=== PATIENT | male | born 2000 | race Caucasian/White ===

== ENCOUNTER 2024-01-11 17:17 | Emergency (ER) | payer BC, SELFPAY ==
[2024-01-11 17:38] VITALS: BP 115/74; PULSE 89; RESP 16; TEMP 37; O2SAT 99; BMI 23.7
--- NOTE | 2024-01-11 17:52 | XR_ITS ---
Patient: BALBINA ARDON Facility:?[facility] Patient ID:?[id number] Site Patient ID:?[id number] Site :?2002 Study:?XRay-Extremity Right KNEE-01/11/2024 6:13:34 PM Ordering Physician:?DR BURT Final Report: Indication: Fall, medial and posterior pain. Technique: Right knee 3 views. Comparison: None. Findings: Bones: Alignment is normal. No fractures or bone lesions. Joint spaces: Small knee joint effusion.. Soft tissues: Unremarkable. Impression: Small knee joint effusion. No acute bony abnormality. Dictated by Demetri Santoro MD @ 01/11/2024 6:18:12 PM Signed by:?Demetri Santoro MD @01/11/2024 6:18:12 PM (Electronic Signature)
--- NOTE | 2024-01-11 18:05 | ED.LOWEXIN ---
HPI - Extremity Injury (Lower) General Date Seen: 01/11/24 Chief Complaint: Extremity Pain/Injury, Lower Stated Complaint: Fell while climbing, R leg injury Time Seen by Provider: 01/11/24 17:46 Source: patient Mode of arrival: ambulatory Limitations: no limitations History of Present Illness HPI Narrative: Patient is a 23-year-old male presenting to emergency department for right lower extremity pain. He states he was at the [employer] when he attempted a job causing him to fall approximately 3 ft landing on his right foot. He thought like he heard a pop in his upper calf. States the pain has been gradually getting worse but has been able walk. Has no pain when putting pressure on the leg but does nose pain to his proximal calf with extension and will lateral right knee with flexion. Also states he is having some pain that just above his right ankle. No other injuries noted. Related Data Home Medications Medication Instructions Recorded Confirmed methylphenidate HCl 5 mg tablet 5 mg PO BID 01/11/24 01/11/24 Allergies Allergy/AdvReac Type Severity Reaction Status Date / Time No Known Drug Allergies Allergy Verified 01/11/24 17:37 Review of Systems Narrative: Pertinent systems reviewed and were negative unless stated HPI PFSH PFSH Social History Smoking Status: Never smoker Do you use any of these nicotine containing products: None How often do you have a drink containing alcohol: 2-3 times a week AUDIT-C Alcohol total score: 3 Non-prescribed substance use: denies use Exam Narrative: Exam Narrative: Const: Well-nourished, Well-developed, in mild distress Eyes: PERRL, no conjunctival injection, and symmetrical lids HENT: Atraumatic external nose and ears. Moist mucous membranes. Remove MSK:Extremities w/o deformity, mildly decreased passive range of motion to right knee secondary to pain. Some mild tenderness proximal calf and lateral knee joint line. No tenderness noted down by ankle. Mildly decreased passive range of motion secondary to pain. Skin: Warm, Dry. No rashes or lesions. Neuro: Normal Muscle tone, No focal neurological deficits. Psych: Awake, Alert, & Oriented x3. Appropriate mood and affect. Const: Vital Signs, click to edit/add: Vital Signs - 24 hr 01/11/24 17:38 Temperature 98.6 F Pulse Rate [Pulse Oximeter] 89 Respiratory Rate 16 Blood Pressure [Ri ght Upper Arm] 115/74 Pulse Oximetry 99 Oxygen Delivery Me thod Room Air Course Vital Signs Vital signs: Initial Vital Signs Temperature 98.6 F 01/11/24 17:38 Temperature Source Temporal Artery Scan 01/11/24 17:38 Pulse Rate 89 01/11/24 17:38 Respiratory Rate 16 01/11/24 17:38 Blood Pressure 115/74 01/11/24 17:38 Blood Pressure Mean 87 01/11/24 17:38 Blood Pressure Position Sitting 01/11/24 17:38 Pulse Oximetry 99 01/11/24 17:38 Oxygen Delivery Method Room Air 01/11/24 17:38 Vital Signs Temperature 98.6 F 01/11/24 17:38 Pulse Rate 89 01/11/24 17:38 Respiratory Rate 16 01/11/24 17:38 Blood Pressure 115/74 01/11/24 17:38 Pulse Oximetry 99 01/11/24 17:38 Oxygen Delivery Method Room Air 01/11/24 17:38 Temperature 98.6 F 01/11/24 17:38 Pulse Rate 89 01/11/24 17:38 Respiratory Rate 16 01/11/24 17:38 Blood Pressure 115/74 01/11/24 17:38 Pulse Oximetry 99 01/11/24 17:38 Oxygen Delivery Method Room Air 01/11/24 17:38 MDM - Extremity Injury (Lower) MDM Narrative Medical decision making narrative: Patient is a 23-year-old male presenting for right knee and calf pain. He is able to move his knee and ankle and I am not concerned about a tendon rupture right now. Will do an x-ray of the knee to better evaluate any potential bony abnormalities. Do not believe any images of the ankle or lower leg as he has no point tenderness. He is not want anything for pain at this time. X-ray reviewed by myself and the radiologist shows a small knee joint effusion but no other abnormalities. He is otherwise doing well will be discharge at this time. Imaging Data Right knee x-ray: Attestation: I have reviewed the pertinent imaging results. Radiologist's impression: Small knee joint effusion. No acute bony abnormality. Dictated by Demetri Santoro MD @ 01/11/2024 6:18:12 PM Discharge Plan Discharge Clinical Impression: Sprain of knee Qualifiers: Encounter type: initial encounter Involved ligament of knee: unspecified ligament Laterality: left Qualified Code(s): S83.92XA - Sprain of unspecified site of left knee, initial encounter Patient Disposition: Home, Self-Care Condition: Stable Instructions: Knee Sprain (DC) Additional Instructions: Take Tylenol and ibuprofen for pain. Keep leg elevated. Use ice for 20 minutes 3 times a day as needed for pain. Return for new or worsening symptoms. If you are having persistent knee issues follow-up in the [facility]. Prescriptions: No Action methylphenidate HCl 5 mg tablet 5 mg PO BID Follow Up/Referrals: Provider,Not a Local [Primary Care Provider] - Stand Alone Forms: [employer] Info Instructions
--- OUTSIDE RECORDS SUMMARY | 2024-01-11 18:28 | XMS_ITS | Clinical Summary ---
Author Name Unknown Organization [facility] Address [place], [place] [address] Care Team Providers Care Diver Tender Name Role Phone Pcp, No Primary Care Provider Unavailabl e Allergies No known active allergies Medications Medication Sig Dispensed Refills Start Date End Date Status methylphenidate HCl (Ritalin) 5 mg tablet Take 1 Tablet (5 mg) by mouth 2 times daily. 60 Tablet 01/14/2022 Active melatonin 5 mg capsule Take 1 Capsule (5 mg) by mouth. 0 01/14/2022 Active albuterol HFA (PRO-AIR; VENTOLIN; PROVENTIL) 90 mcg/actuation inhaler Inhale 2 Puffs by mouth. 01/25/2021 Active fluticasone propionate (Flovent HFA) 110 mcg/Actuation inhaler Indications: needed seasonally 01/26/2021 Active Encounters Date Type Department Care Team Description 01/11/2024 Nurse Triage [facility] [address] [place] [address] Pcp, No Leg Injury (Right lower leg, calf area ) from Last 3 Months Immunizations Name Administration Dates Next Due DTaP 08/20/2007,01/24/2003,2002 ,2002 HPV 9 (Gardasil 9) 03/06/2018,11/26/2016 Hepatitis A (Peds) 06/05/2009,05/23/2008 Hepatitis B (Peds) 06/05/2009,07/09/2008, 008 Hib Conjugate, Unspecified 03/29/2003,01/24/2003 ,2002,2002 Human Papilloma Virus Vaccine 05/29/2014 Inactivated Polio Vaccine 08/20/2007,01/24/2003, 2002,2002 Influenza A (H1N1), Inactivated 06/26/2009 Influenza Virus, Unspecified 08/15/2016,07/09/20 08 MMR 08/20/2007,01/03/2004 Meningococcal Vaccine (Menactra) 05/29/2014 Tdap 05/29/2014 Varicella Vaccine 09/12/2004 Social History Tobacco Use Types Packs/Day Years Used Date Smoking Tobacco: Never Smokeless Tobacco: Never Tobacco Cessation:Counseling Given: Yes Social Connections Answer Date Recorded Frequency of Communication with Friends and Fami ly Not on file 01/14/2022 Sex and Gender Information Value Date Recorded Sex Assigned at Not on file Gender Identity Not on file Sexual Orientation Not on file Obstetrics History Last Filed Vital Signs Vital Sign Reading Time Taken Comments Blood Pressure 120/72 01/14/2022 8:20 AM CDT Pulse 82 01/14/2022 8:20 AM CDT Temperature 36.7 ??C (98 ??F) 01/14/2022 8:20 AM CDT Respiratory Rate - - Oxygen Saturation 98% 01/14/2022 8:20 AM CDT Inhaled Oxygen Concentration - - Weight 87.7 kg (193 lb 6.4 oz) 01/14/2022 8:20 A M CDT Height 185.4 cm (6' 1) 01/14/2022 8:20 AM CDT Body Mass Index 25.52 01/14/2022 8:20 AM CDT Plan of Treatment Health Maintenance Due Date Last Done Comments Depression screening for age 12+ 2014 HIV for age 15-65 2017 Hepatitis C screening for ag e 18-79 2020 BMI (ht and wt on same day) for age 18+ 01/14/2023 01/14/2022 COVID-19 vaccine series (2022- season) 2023 Influenza for age 9-49 05/13/2024 6, 06/26/2009, 07/09/2008 Tetanus booster 05/29/2024 05/29/2014 Meningococcal series for age 11-21 Aged Out 05/29/2014 No longer eligible b ased on patient's age to complete this topic Tdap Completed 05/29/2014 HPV series for age 9-26 Completed 03/06/20 18, 11/26/2016, 05/29/2014 Pneumococcal series for age 6-64 Aged Out No longer eligible b ased on patient's age to complete this topic Care Teams Diver Tender Relationship Specialty Start Date End Date Pcp, No . PCP - General 01/14/22
--- OUTSIDE RECORDS SUMMARY | 2024-01-11 18:28 | XMS_ITS | Clinical Summary ---
Author Name Unknown Organization [facility] Address [phone] [facility] [place] [address] Care Team Providers Care Client Advisor Name Role Phone Thi Iraheta MD Primary Care Provider Deana Murphy DDS, MS Unavailable [phone] Allergies No known active allergies Medications Medication Sig Dispensed Refills Start Date End Date Status fluticasone propionate (FLONASE) 50 mcg/actuation nasal spray 2 sprays. 0 04/03/2019 Active albuterol 90 mcg/actuation inhalerIndications:n eeded seasonally Inhale 2 puffs into the lungs. Indications: needed seasonally 0 01/25/2021 Active fluticasone propionate (FLOVENT HFA) 110 mcg/actuation inhalerIndications:n eeded seasonally Indications: needed seasonally 0 01/26/2021 Active Active Problems Problem Noted Date Diagnosed Date Testicle pain 03/01/2019 Immunizations Name Administration Dates Next Due DTaP 08/20/2007, 3,2002,11/21 [id number] FORMULATION 06/26/2009 HPV,quadrivalent 05/29/2014 HPV9 03/06/2018,11/26/2016 Hepatitis A, ped/adol, 2 dose 06/05/2009, 008 Hepatitis B 06/05/2009,07/09/2008,05/23/2008 Hib, unspecified formulation 03/29/2003, 01/24/2003,2002,11/21 Influenza Quadrivalent Prese rvative Free IM 08/13/2019,09/06/2018,05/29/2014 Influenza Trivalent w/ Preservative IM 1 09/21/2011,07/05/2011,06/16/2010,06/05 Influenza, Unspecified Formulation 08/15/2016, MMR 08/20/2007,01/03/2004 Meningococcal MCV4P 05/29/2014 Polio - IPV 08/20/2007, 3,2002,11/21 Tdap 05/29/2014 Varicella 09/12/2004 Family History Medical History Relation Comments Melanoma Father Sleep apnea Father Prostate cancer Maternal Grandfather Skin cancer Maternal Grandfather Lung cancer Paternal Grandfather Relation Status Comments Father Maternal Grandfather Paternal Grandfather Social History Tobacco Use Types Packs/Day Years Used Date Smoking Tobacco: Never Smokeless Tobacco: Never Alcohol Use Standard Drinks/Week Comments Not Currently 0 (1 standard drink = 0.6 oz pur e alcohol) Education Answer Date Recorded Are you interested in more education? Not on luis e 01/07/2023 Are you concerned about learning? Not on file 01/07/2023 No 01/07/2023 No 01/07/2023 Digital Access Answer Date Recorded No 02/07/2023 No 02/07/2023 No 02/07/2023 Reliable internet access at home? Not on file 02/07/2023 Device with a working camera? Not on file Sex and Gender Information Value Date Recorded Sex Assigned at Not on file Gender Identity Not on file Sexual Orientation Not on file Last Filed Vital Signs Vital Sign Reading Time Taken Comments Blood Pressure 119/71 04/13/2021 12:06 PM EDT Pulse 70 04/13/2021 12:06 PM EDT Temperature 36.6 ??C (97.8 ??F) 04/13/2021 12:06 PM E DT Respiratory Rate 16 10/07/2019 5:37 PM EST Oxygen Saturation 99% 04/13/2021 12:06 PM EDT Inhaled Oxygen Concentration - - Weight 86.2 kg (190 lb) 04/13/2021 12:06 PM EDT Height 185.4 cm (6' 1) 04/13/2021 12:06 PM EDT Body Mass Index 25.07 04/13/2021 12:06 PM EDT Plan of Treatment Health Maintenance Due Date Last Done Comments DEPRESSION SCREENING 2015 SMOKING Hx and SMOKELESS TOBACCO SCREENING 2015 ADOLESCENT UNIVERSAL LIPID SCREENING 2019 04/03/2019 HEPATITIS C SCREENING 2020 HIV ONE-TIME SCREENING (18-65 YEARS) 2020 COVID-19 VACCINE ( season) 2023 01/24/2021, 12/26/2020 Adult Td,Tdap Booster 05/29/2024 05/29/2014 COMBINED DTaP,Tdap,Td (6 - Td or Tdap) 05/29/2024 05/29/2014, 08/20/2007, 01/24/2003, Additional history exists HIB VACCINES Aged Out 03/29/2003, 01/10, 2002, Additional history exists No longer eligible based on patient's age to complete this topic MMR VACCINES Completed 08/20/2007, 01/03/2004 HEPATITIS A VACCINES Completed 06/05/2009, 05/23/20 08 HEPATITIS B VACCINES Completed 06/05/2009, 07/09/2008, 05/23/2008 HPV VACCINES Completed 03/06/2018, 11/10, 05/29/2014 MENINGOCOCCAL VACCINES (ACWY) Completed 06/16/2020, 05/29/2014 PNEUMOCOCCAL VACCINES (0-64 years) Aged Out No longer eligible based on patient's age to complete this topic Medical Devices Not on file Care Teams Client Advisor Relationship Specialty Start Date End Date Thi Iraheta MD [address] [place] [phone] [email or web address] PCP - General Internal Medicine 12/08/18 Deana Murphy DDS, MS [address] [place] [phone] [email or web address] 03/08/19 Additional Source Comments The information contained in this document represents components of the legal health record. It is not the complete legal health record.[facility]
--- OUTSIDE RECORDS SUMMARY | 2024-01-11 18:28 | XMS_ITS | Encounter Summary ---
Author Name Unknown Organization [facility] Address [phone] [facility], [facility] [email or web address] [address] Care Team Providers Care Business Information Analyst Name Role Phone Thi Iraheta MD Primary Care Provider [phone] Deana Murphy DDS, MS Unavailable [phone] Encounter Details Date Type Department Care Team Description 05/14/2020 Procedure Pass [facility] [address] [place] [id number] Social History Tobacco Use Types Packs/Day Years Used Date Smoking Tobacco: Never Smokeless Tobacco: Never Alcohol Use Standard Drinks/Week Comments Not Currently 0 (1 standard drink = 0.6 oz pur e alcohol) Sex and Gender Information Value Date Recorded Sex Assigned at Not on file Gender Identity Not on file Sexual Orientation Not on file documented as of this encounter Plan of Treatment Not on file documented as of this encounter Visit Diagnoses Not on filedocumented in this encounter Care Teams Business Information Analyst Relationship Specialty Start Date End Date Thi Iraheta MD [address] [place] [phone] [email or web address] PCP - General Internal Medicine 12/08/18 Deana Murphy DDS, MS [address] [place] [phone] [email or web address] 03/08/19 documented as of this encounter Additional Source Comments The information contained in this document represents components of the legal health record. It is not the complete legal health record.[facility]
--- OUTSIDE RECORDS SUMMARY | 2024-01-11 18:29 | XMS_ITS | Encounter Summary ---
Author Name Unknown Organization [facility] Address [phone] [facility] [address] [place] [address] Care Team Providers Care Aviation Engineer Name Role Phone Thi Iraheta MD Primary Care Provider [phone] Deana Murphy DDS, MS Unavailable [phone] Encounter Details Date Type Department Care Team Description 03/08/2019 Procedure Pass [facility] [address] [place] [id number] Social History Tobacco Use Types Packs/Day Years [...] on filedocumented in this encounter Care Teams Aviation Engineer Relationship Specialty Start Date End Date Thi Iraheta MD [address] [place] [phone] [email or web address] PCP - General Internal Medicine 12/08/18 Deana Murphy DDS, MS [address] [place] [phone] [email or web address] 03/08/19 documented as of this encounter Additional Source Comments The information contained in this document represents components of the legal health record. It is not the complete legal health record.[facility]
--- OUTSIDE RECORDS SUMMARY | 2024-01-11 18:29 | XMS_ITS | Clinical Summary ---
Author Name Unknown Organization [facility] [employer] Address [address] [address] Care Team Providers Care Sales Recruiter Name Role Phone Thi Meneses MD Primary Care Provide r Allergies No known active allergies Medications No known medications Immunizations Name Administration Dates Next Due Fluarix Quadrivalent Prefilled Syringe 6 Social History Tobacco Use Types Packs/Day Years Used Date Smoking Tobacco: Never Sex and Gender Information Value Date Recorded Sex Assigned at Not on file Gender Identity Not on file Sexual Orientation Not on file Last Filed Vital Signs Vital Sign Reading Time Taken Comments Blood Pressure 110/68 10/09/2017 12:08 PM EST Pulse 86 10/09/2017 12:08 PM EST Temperature 37 ??C (98.6 ??F) 10/09/2017 12:08 PM EST Respiratory Rate 12 10/09/2017 12:08 PM EST Oxygen Saturation 98% 10/09/2017 12:08 PM EST Inhaled Oxygen Concentration - - Weight - - Height - - Body Mass Index - - Plan of Treatment Health Maintenance Due Date Last Done Comments COVID-19 Vaccine Screening: Initial Series and Booster Status ([facility]) (#1) 03/30/2003 Depression: Screening Annual ly using PHQ9 in Seaqau99 yrs orabove (or HM Modifier)([facility]) 2020 Hepatitis C Virus Infection in Adolescents and Adults: Screening (or Modifier) ([facility]) 2020 SDOH Screening Reminder: Cinthya brothers for all adults ([facility]) 2020 Tobacco Smoking Cessation: i n Adults excluding Women: Behavioral and Pharmacotherapy Interventions ([facility]) 2020 Lipid Screening: Once for Me n aged 20 to 35 yrs ([facility]) 2022 Flu Vaccination: Yearly for ages 18mos through 64 years (or Modifier)([facility]) 04/12/2023 08/15/2016 Zoster/Shingles Vaccine Seri es Screening: Adults aged 18+ yrs (or HM Modifiers)([facility]) (1 of 2) 2052 Pneumococcal Vaccination Scr eening: Pts 0-19 & 19-64 yrs of age ([facility]) Aged Out No longer eligible b ased on patient's age to complete this topic Medical Devices Not on file Insurance Payer Benefit Plan / Group Subscriber ID Effect roma Dates Phone Address Type [facility] [id number] 8-Pres ent [address] [place] [address] Care Teams Sales Recruiter Relationship Specialty Start Date End Date Thi Meneses MD PCP - General Pediatrics 08/15/16
--- OUTSIDE RECORDS SUMMARY | 2024-01-11 18:29 | XMS_ITS | Clinical Summary ---
Author Name Unknown Organization [facility] Address [address] [place] [id number] Phone Care Team Providers Care Inbound Sales Consultant Name Role Phone Sara Brown MD Primary Care Provider [phone] Immunizations Name Administration Dates Next Due DTaP 08/20/2007, 3,2002,11/21 H1N1 06/26/2009 HPV, Quadrivalent 05/29/2014 Hep A, ped/adol 06/05/2009,05/23/2008 Hep B, ped/adol 06/05/2009,07/09/2008,05/23/2008 Hib, unspecified formulation 03/29/2003, 01/24/2003,2002,11/21 IPV 08/20/2007, 3,2002,11/21 Influenza 07/09/2008 Influenza TIV (IM) 07/22/2012, 1,06/16/2010,06/05 Influenza, injectable, quadr ivalent, preservative free 05/29/2014 MMR 08/20/2007,01/03/2004 Meningococcal Conj (Menactra) MCV4P 05/29/2014 Tdap 05/29/2014 Family History Relation Name Status Comments Father melanoma Social History Tobacco Use Types Packs/Day Years Used Date Smoking Tobacco: Never Assessed Sex and Gender Information Value Date Recorded Sex Assigned at Not on file Gender Identity Not on file Sexual Orientation Not on file Last Filed Vital Signs Vital Sign Reading Time Taken Comments Blood Pressure 102/62 05/29/2014 12:00 AM EDT Pulse 80 05/29/2014 12:00 AM EDT Temperature 38.1 ??C (100.5 ??F) 10/07/2014 12:00 AM EST Respiratory Rate - - Oxygen Saturation - - Inhaled Oxygen Concentration - - Weight 50.8 kg (112 lb) 10/07/2014 12:00 AM EST Height 154.9 cm (5' 1) 05/29/2014 12:00 AM EDT Body Mass Index - - Plan of Treatment Health Maintenance Due Date Last Done Comments Consider Men B Vaccine (1 of 2 - Bexsero 2-dose series) 2012 HPV Vaccines (2 - Male 2-dose series) 11/26/2014 05/29/2014 Varicella Vaccines (1 of 2 - 13+ 2-dose series) 2015 Influenza Vaccines (#1) 2023 05/29/20 14, 07/22/2012, 07/05/2011, Additional history exists COVID-19 Vaccine ( - 2022- season) 2023 DTaP,Tdap,and Td Vaccines (6 - Td or Tdap) 05/29/2024 05/29/2014, 08/20/2007, 01/24/2003, Additional history exists HIB Vaccines Aged Out 03/29/2003, 01/10, 2002, Additional history exists No longer eligible based on patient's age to complete this topic IPV Vaccines Completed 08/20/2007, 01/10, 2002, Additional history exists MMR Vaccines Completed 08/20/2007, 01/03/2004 Hepatitis A Vaccines Completed 06/05/2009, 05/23/20 08 Hepatitis B Vaccines Completed 06/05/2009, 07/09/2008, 05/23/2008 Meningococcal Vaccine Aged Out 05/29/2014 No missy callum eligible based on patient's age to complete this topic Pneumococcal Vaccine Aged Out No long er eligible based on patient's age to complete this topic Care Teams Inbound Sales Consultant Relationship Specialty Start Date End Date Sara Brown MD [address] [place] [address] PCP - General 11/02/16
[2024-01-11 18:47] VITALS: BP 115/74; PULSE 89; RESP 16; TEMP 37
== END 2024-01-11 18:47 | disposition home or self-care (01) ==
PROVIDERS: Emergency Provider Student in an Organized Health Care Education/Training Program
DX: S86.901A Unspecified injury of unspecified muscle(s) and tendon(s) at lower leg level, right leg, initial encounter (principal); W17.89XA Other fall from one level to another, initial encounter; Y92.39 Other specified sports and athletic area as the place of occurrence of the external cause
CPT/HCPCS: 73562; 99282; 99283